=== PATIENT | male | born 1960 | race Caucasian/White ===

== ENCOUNTER → 2016-12-11 | Day surgery (SDC) | payer OTHER ==
[~2016-12-11] VITALS: Ht 185.4 cm; Wt 97.7 kg
[~2016-12-11] MED LIST: MAGNESIUM100 MG PO; PROTONIX40 MG PO; SAW PALMETTO160 MG PO; TAB-A-VITE1 EACH PO; TUMERIC PO
--- NOTE | ~2016-12-11 | ER ---
PATIENT'S NAME: CHANDU ROGERS [facility] AGE: 56 Y [address] ROOM: [place] [address] LOCATION: [facility] [place] ADMIT DATE: 12/11/2016 ER/Outpatient Report DISCHARGE DATE: FAMILY PHYSICIAN: Eric Rees MD ATTENDING PHYSICIAN: Lucrecia Kauffman Admission date and time documented in medical record. I saw the patient 0910 hours. CHIEF COMPLAINT: Piece of steak stuck in his esophagus, unable to pass. HISTORY OF PRESENT ILLNESS: This patient is a 56-year-old male, who was eating steak last night, got a piece of steak caught in his esophagus about 2200 hours. He has been unable to dislodge the piece of steak, presented to the emergency room for evaluation. We did try glucagon 1 mg IV here in the emergency department and were unsuccessful. The patient has no recent coughs, colds, flus, fever, chills, or sweats. No chest pain, shortness of breath. No abdominal pain. No neuro changes. HOME MEDICATIONS: None. ALLERGIES: NONE. SOCIAL HISTORY: Nonsmoker. Chews a can of tobacco a day. Drinks of beer each night. PAST MEDICAL HISTORY: Negative, except for tobacco usage. OPERATIONS: Axillary mass excision. REVIEW OF SYSTEMS: All systems reviewed by me are negative with the exception of those discussed in the history of present illness. PHYSICAL EXAMINATION: VITAL SIGNS: Temperature 96.1 tympanic, pulse 89, respirations 20, blood pressure 159/103, O2 saturation on room air is 96%. HEAD: Normocephalic. EYES, EARS, NOSE, THROAT: Clear. Mucous membranes moist. PATIENT'S NAME: CHANDU ROGERS [facility] AGE: 56 Y [address] ROOM: [place] [address] LOCATION: [facility] [place] ADMIT DATE: 12/11/2016 ER/Outpatient Report DISCHARGE DATE: FAMILY PHYSICIAN: Eric Rees MD ATTENDING PHYSICIAN: Lucrecia Kauffman NECK: Negative. LUNGS: Clear. HEART: Regular. ABDOMEN: Soft. Active bowel tones. No organomegaly or abnormal mass palpable. NEUROVASCULAR: Intact. Did start on IV normal saline. Did give the patient glucagon 1 mg IV without improvement. The patient is unable to dislodge the meat steak, foreign body in his esophagus. IMPRESSION: Steak bolus in esophagus. The patient is unable to clear. PLAN: I did discuss the patient with Dr. Kauffman, manager business systems. The patient will be taken to endoscopy for removal of steak foreign body from the esophagus. Discussed with the patient concerning my findings and recommendations, he understands. MD MISA SIMMONS/chelsea /[id number] d: 12/11/16 1512 t: 12/12/16 0623, OUTPATIENT REPORT
== END | disposition disaster alternative care site (69) ==
LOC: GMED 08:54 → GSDC 10:18
PROC: 0DC38ZZ Extirpation of Matter from Lower Esophagus, Via Natural or Artificial Opening Endoscopic (ICD-10-PCS; principal; 2016-12-11)
DX: T18.128A Food in esophagus causing other injury, initial encounter (principal); K44.9 Diaphragmatic hernia without obstruction or gangrene; K31.7 Polyp of stomach and duodenum; I10 Essential (primary) hypertension; J45.909 Unspecified asthma, uncomplicated; F17.220 Nicotine dependence, chewing tobacco, uncomplicated
CPT/HCPCS: J1610; J7030; J7040

== ENCOUNTER → 2017-01-18 | Day surgery (SDC) | payer OTHER ==
[~2017-01-18] VITALS: Ht 185.4 cm; Wt 97.1 kg
== END ==
LOC: GPOC 01-12 09:00 → GEND 08:46 → GPOC 09:00
PROC: 0D738ZZ Dilation of Lower Esophagus, Via Natural or Artificial Opening Endoscopic (ICD-10-PCS; principal; 2017-01-18)
DX: K22.2 Esophageal obstruction (principal); K21.0 Gastro-esophageal reflux disease with esophagitis; K44.9 Diaphragmatic hernia without obstruction or gangrene; K22.10 Ulcer of esophagus without bleeding; J45.909 Unspecified asthma, uncomplicated; I10 Essential (primary) hypertension; Z79.899 Other long term (current) drug therapy
CPT/HCPCS: C1726; J2001; J7030